=== PATIENT | male | born 1985 ===

== ENCOUNTER 2017-09-05 20:30 | Emergency (ER) | payer OTHER ==
[2017-09-05 20:45] VITALS: BP 157/102
[2017-09-05] MEDS ORDERED: cefTRIAXone VIAL(*) 250 MG VIAL IM ONE (21:04)
[2017-09-05] MEDS ORDERED: DOXYcycline CAP(*) 100 MG PO ONE (21:05)
--- NOTE | 2017-09-05 21:09 | UC ---
Complaint Male HPI - HPI Summary HPI Summary: pt c/o of urinary frequency X 2 weeks. Pt reports penile discharge X 1 week. Pt has concern for STD exposure. - History of Current Complaint Chief Complaint: UCGU Stated Complaint: URINARY Time Seen by Provider: 09/05/17 20:43 Hx Obtained From: Patient Onset/Duration: Sudden Onset, Lasting Weeks, Still Present, Worse Since - osnet Timing: Constant Severity Initially: Mild Severity Currently: Mild Location: Penis Character: Burning Aggravating Factor(s): Voiding Alleviating Factor(s): Nothing Associated Signs And Symptoms: Positive: Dysuria, Penile Discharge - Risk Factors Testicular Torsion: Negative - Allergies/Home Medications Allergies/Adverse Reactions: Allergies Allergy/AdvReac Type Severity Reaction Status Date / Time No Known Allergies Allergy Verified 09/05/17 20:45 PMH/Surg Hx/FS Hx/Imm Hx Cardiovascular History: Hypertension - untreated with medication, pt aware and has been trying to do lifestyle changes. - Surgical History Surgical History: None - Family History Known Family History: Positive: Cardiac Disease - Social History Occupation: Student Lives: With Family Alcohol Use: Occasionally Substance Use Type: None Smoking Status (MU): Never Smoked Tobacco Have You Smoked in the Last Year: No - Immunization History Most Recent Influenza Vaccination: 2017 Review of Systems Constitutional: Negative Skin: Negative Eyes: Negative ENT: Negative Respiratory: Negative Cardiovascular: Negative Gastrointestinal: Negative Genitourinary: Dysuria, Vaginal/Penile Discharge Motor: Negative Neurovascular: Negative Musculoskeletal: Negative Neurological: Negative Psychological: Negative Is Patient Immunocompromised?: No All Other Systems Reviewed And Are Negative: Yes Physical Exam Triage Information Reviewed: Yes Appearance: Well-Appearing Vital Signs: Initial Vital Signs Temp 99.9 F 09/05/17 20:41 Pulse 110 09/05/17 20:41 Resp 16 09/05/17 20:41 BP 157/102 09/05/17 20:41 Pulse Ox 100 09/05/17 20:41 Vital Signs Reviewed: Yes Eye Exam: Normal ENT Exam: Normal Dental Exam: Normal Neck exam: Normal Respiratory Exam: Normal Cardiovascular Exam: Normal Abdominal Exam: Normal Musculoskeletal Exam: Normal Neurological Exam: Normal Psychological Exam: Normal Skin Exam: Normal Complaint Male Course/Dx - Course Course Of Treatment: I discussed with the pt his elevated BP at time of visit. Pt is aware and has been making lifestyle changes but with no improvement. Pt' s PCP is in [facility] and verbalizes that he will follow up with him regarding this finding. - Differential Dx/Diagnosis Differential Diagnosis/HQI/PQRI: Urinary Tract Infection, Other - dysuria, STD exposure Provider Diagnoses: dysuria-STD exposure? Hypertension- pt aware and will seek care from PCP Discharge - Discharge Plan Condition: Stable Disposition: HOME Prescriptions: DOXYcycline CAP(*) [DOXYcycline 100MG CAP(*)] 100 mg PO Q12H #14 cap Patient Education Materials: Dysuria (ED), Hypertension (ED) Referrals: Non Staff,Doctor [Primary Care Provider] - As Soon As Possible
== END 2017-09-05 21:38 | disposition home or self-care (01) ==
LOC: UCCORT 20:30
DX: R30.0 Dysuria (principal); R36.9 Urethral discharge, unspecified; I10 Essential (primary) hypertension; Z11.3 Encounter for screening for infections with a predominantly sexual mode of transmission
CPT/HCPCS: 81003; 87491; 87591; 96372; 99202; A9270-GY; G0463; J0696